=== PATIENT | male | born 1990 | race Caucasian/White ===

== ENCOUNTER 2019-04-08 16:40 | Emergency (ER) | payer SELFPAY ==
[2019-04-08] MEDS ORDERED: NORMAL SALINE 1000 ML 1,000 ML IV ONE (17:14)
--- NOTE | 2019-04-08 17:14 | ER Document Report ---
ED Medical Screen (RME) - General Chief Complaint: Flank Pain Stated Complaint: FLANK PAIN Time Seen by Provider: 04/08/19 17:09 TRAVEL OUTSIDE OF THE [place] IN LAST 30 DAYS: No - HPI Notes: 04/08/19 17:13 Patient is a 28-year-old male who presents complaining of right upper quadrant abdominal pain and right side pain. Patient states that he still has a cough and is not sure if this is related. He does feel hot and cold. He is urinating normally and having normal bowel movements. Pain does not radiate otherwise. No surgical history to his abdomen. Denies drug allergies. No chest pain or shortness of breath. No nausea/vomiting/diarrhea. I have treated and performed a rapid initial assessment of this patient. A comprehensive ED assessment and evaluation of the patient, analysis of test re sults and completion of medical decision making process will be conducted by additional ED providers. PHYSICAL EXAMINATION: GENERAL: Well-appearing, well-nourished and in no acute distress. A&Ox4. Answers questions appropriately. Abdomen: Limited exam in triage, but patient does have right upper quadrant tenderness. No CVA tenderness Lungs: Grossly CTAB - Related Data Allergies/Adverse Reactions: No Known Allergies Allergy (Verified 04/08/19 17:08) Past Medical History Pulmonary Medical History: Denies: Hx Asthma Neurological Medical History: Reports: Hx Migraine Endocrine Medical History: Denies: Hx Diabetes Mellitus Type 1 Musculoskeltal Medical History: Denies Hx Arthritis Psychiatric Medical History: Reports: Hx Anxiety Traumatic Medical History: Denies: Hx Fractures - Immunizations Hx Diphtheria, Pertussis, Tetanus Vaccination: No Physical Exam - Vital signs Vitals: Temp Pulse Resp BP Pulse Ox 97.6 F 105 H 20 150/87 H 100 04/08/19 16:42 04/08/19 16:42 04/08/19 16:42 04/08/19 16:42 04/08/19 16:42 Course - Vital Signs Vital signs: Temp Pulse Resp BP Pulse Ox 97.6 F 105 H 20 150/87 H 100 04/08/19 16:42 04/08/19 16:42 04/08/19 16:42 04/08/19 16:42 04/08/19 16:42
[2019-04-08] MEDS ORDERED: MORPHINE SULFATE 10 MG/ML INJ IV ONE ×2 (17:15→19:50)
[2019-04-08 17:43] LABS: ABSOLUTE LYMPHOCYTES (AUTO) 0.6 10^3/uL (0.5-4.7); ABSOLUTE MONOCYTES (AUTO) 0.4 10^3/uL (0.1-1.4); ABSOLUTE NEUT (AUTO) 7.7 10^3/uL (1.7-8.2); BASOPHILS % (AUTO) 0.2 % (0-2); HEMATOCRIT 45.4 % (37.9-51.0); HEMOGLOBIN 15.8 g/dL (13.5-17.0); LYMPHOCYTES % (AUTO) 6.7 % (13-45); MEAN CORPUSCULAR HEMOGLOBIN 30.9 pg (27.0-33.4); MEAN CORPUSCULAR HGB CONC 34.8 g/dL (32.0-36.0); MEAN CORPUSCULAR VOLUME 89 fl (80-97); MONOCYTES % (AUTO) 4.9 % (3-13); PLATELET COUNT 261 10^3/uL (150-450); RED BLOOD COUNT 5.11 10^6/uL (4.35-5.55); RED CELL DISTRIBUTION WIDTH 12.4 % (11.5-14.0); SEGMENTED NEUTROPHILS % (AUTO) 88.2 % (42-78); TOTAL CELLS COUNTED % (AUTO) 100 %; WHITE BLOOD COUNT 8.7 10^3/uL (4.0-10.5)
[2019-04-08 17:44] LABS: APPEARANCE,URINE CLEAR; BILIRUBIN,URINE NEGATIVE (NEGATIVE); COLOR,URINE YELLOW; GLUCOSE, URINE NEGATIVE (NEGATIVE); KETONES,URINE 80 mg/dL (NEGATIVE); LEUKOCYTE ESTERASE,URINE NEGATIVE (NEGATIVE); NITRITE,URINE NEGATIVE (NEGATIVE); PROTEIN,URINE 30 mg/dL (NEGATIVE); URINE SPECIFIC GRAVITY 1.026; UROBILINOGEN,URINE NEGATIVE mg/dL (<2.0)
[2019-04-08 18:03] LABS: ALBUMIN 5.1 g/dL (3.5-5.0); ALKALINE PHOSPHATASE 80 U/L (38-126); ANION GAP 14 (5-19); ASPARTATE AMINO TRANSFERASE 37 U/L (17-59); BILIRUBIN,DIRECT 0.2 mg/dL (0.0-0.4); BILIRUBIN,TOTAL 0.9 mg/dL (0.2-1.3); BLOOD UREA NITROGEN 13 mg/dL (7-20); CALCIUM 9.9 mg/dL (8.4-10.2); CARBON DIOXIDE 25 mmol/L (22-30); CHLORIDE 98 mmol/L (98-107); GLUCOSE 116 mg/dL (75-110); POTASSIUM 4.1 mmol/L (3.6-5.0); TOTAL PROTEIN 8.5 g/dL (6.3-8.2)
--- NOTE | 2019-04-08 18:04 | RADIOLOGY REPORT (SQ) ---
EXAM DESCRIPTION: CHEST 2 VIEWS COMPLETED DATE/TIME: 04/08/2019 5:47 pm REASON FOR STUDY: Cough, RUQ pain COMPARISON: None. EXAM PARAMETERS: NUMBER OF VIEWS: two views TECHNIQUE: Digital Frontal and Lateral radiographic views of the chest acquired. RADIATION DOSE: NA LIMITATIONS: none FINDINGS: LUNGS AND PLEURA: Elevated left hemidiaphragm. Mild subsegmental atelectasis in the left base. No acute infiltrate, effusion, or mass. MEDIASTINUM AND HILAR STRUCTURES: No masses or contour abnormalities. HEART AND VASCULAR STRUCTURES: Heart normal size. No evidence for failure. BONES: No acute findings. HARDWARE: None in the chest. OTHER: No other significant finding. IMPRESSION: NO ACUTE RADIOGRAPHIC FINDING IN THE CHEST. TECHNICAL DOCUMENTATION: JOB ID: [id number] [employer]- All Rights Reserved Reading location - IP/workstation name: [email or web address]
--- NOTE | 2019-04-08 18:43 | RADIOLOGY REPORT (SQ) ---
EXAM DESCRIPTION: U/S ABDOMEN LIMITED W/O DOP COMPLETED DATE/TIME: 04/08/2019 6:34 pm REASON FOR STUDY: RUQ pain COMPARISON: None. TECHNIQUE: Dynamic and static grayscale images acquired of the abdomen and recorded on PACS. Moraima richey selected color Doppler and spectral images recorded. LIMITATIONS: None. FINDINGS: PANCREAS: Poorly seen. LIVER: No masses. Echotexture normal. LIVER VASCULATURE: Normal directional flow of the main portal vein and hepatic veins. GALLBLADDER: No stones. There is some sludge. There is no wall thickening. There is no pericholecy stic fluid. ULTRASOUND-DETECTED JIMENES'S SIGN: Negative. INTRAHEPATIC DUCTS AND COMMON DUCT: CBD and intrahepatic ducts normal caliber. No filling defects. INFERIOR VENA CAVA: Normal flow. AORTA: No aneurysm. RIGHT KIDNEY: Normal size, 10.2 cm. Normal echogenicity. No solid or suspicious masses. No hydroneph rosis. No calcifications. PERITONEAL AND RIGHT PLEURAL SPACE: No ascites or effusions. OTHER: No other significant findings. IMPRESSION: Study is normal except for the presence of a small amount of sludge in the gallbladder. TECHNICAL DOCUMENTATION: JOB ID: [id number]- All Rights Reserved Reading location - IP/workstation name: [email or web address]
--- NOTE | 2019-04-08 20:58 | ER Document Report ---
ED General - General Chief Complaint: Flank Pain Stated Complaint: FLANK PAIN Time Seen by Provider: 04/08/19 17:09 Primary Care Provider: ROSALIO BLACKWELL MD [ACTIVE STAFF] - Follow up in 1 week (for surgery follow up) TRAVEL OUTSIDE OF THE [place] IN LAST 30 DAYS: No - HPI Notes: 28-year-old male to the emergency department with complaints of right upper quadrant pain that radiates into the right flank that began yesterday and has gotten worse. He admits to associated nausea but denies any vomiting. Denies any fevers, chills, chest pain, shortness of breath. He states that he is never had abdominal surgery. - Related Data Allergies/Adverse Reactions: No Known Allergies Allergy (Verified 04/08/19 17:08) Past Medical History - General Information source: Patient, Relative - Social History Smoking Status: Never Smoker Chew tobacco use (# tins/day): No Drug Abuse: None Lives with: Spouse/Significant other Family History: Reviewed & Not Pertinent Patient has suicidal ideation: No Patient has homicidal ideation: No Pulmonary Medical History: Denies: Hx Asthma Neurological Medical History: Reports: Hx Migraine Endocrine Medical History: Denies: Hx Diabetes Mellitus Type 1 Musculoskeletal Medical History: Denies Hx Arthritis Psychiatric Medical History: Reports: Hx Anxiety Traumatic Medical History: Denies: Hx Fractures - Immunizations Hx Diphtheria, Pertussis, Tetanus Vaccination: No Review of Systems - Review of Systems Constitutional: denies: Chills, Fever EENT: No symptoms reported Cardiovascular: denies: Chest pain, Palpitations, Heart racing, Dizziness, Lightheaded Respiratory: denies: Cough, Short of breath Gastrointestinal: Abdominal pain, Nausea. denies: Diarrhea, Vomiting Genitourinary: Flank pain. denies: Frequency, Hematuria, Incontinence Male Genitourinary: No symptoms reported Musculoskeletal: denies: Back pain, Gout, Joint pain Skin: No symptoms reported Hematologic/Lymphatic: No symptoms reported Neurological/Psychological: No symptoms reported -: Yes All other systems reviewed and negative Physical Exam - Vital signs Vitals: Temp Pulse Resp BP Pulse Ox 97.6 F 105 H 20 150/87 H 100 04/08/19 16:42 04/08/19 16:42 04/08/19 16:42 04/08/19 16:42 04/08/19 16:42 Interpretation: Normal - General General appearance: Alert In distress: Mild Notes: mild pain distress - HEENT Head: Normocephalic, Atraumatic Eyes: Normal Pupils: PERRL - Respiratory Respiratory status: No respiratory distress Chest status: Nontender Breath sounds: Normal Chest palpation: Normal - Cardiovascular Rhythm: Regular Heart sounds: Normal auscultation Murmur: No - Abdominal Inspection: Normal Distension: No distension Bowel sounds: Normal Tenderness: Tender - + TTP over over the RUQ, he has mild guarding with p alpation. no Rebound, negative McBurney's point. no CVAT Organomegaly: No organomegaly - Back Back: Normal, Nontender. No: CVA tenderness - Extremities General upper extremity: Normal inspection, Nontender, Normal color, Normal ROM, Normal temperature General lower extremity: Normal inspection, Nontender, Normal color, Normal ROM, Normal temperature, Normal weight bearing. 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 Patient is much improved after pain control with morphine. Repeat abdominal exam show only minimal right upper quadrant TTP -- significantly better from initial exam. Labs are reassuring and US does not show acute cholecystitis or evidence of bile duct obstruction. Will discharge home with pain meds and follow up with surgery. Encouraged to return if worsening pain, fevers, jaundice, intractable vomiting. Patient and spouse agree with the plan. Impression: RUQ abd pain, biliary colic, gallbladder sludge. Will follow treatment plan as outline above. Encouraged low fat diet. - Vital Signs Vital signs: Temp Pulse Resp BP Pulse Ox 98.3 F 89 16 135/92 H 100 04/08/19 21:02 04/08/19 21:02 04/08/19 21:02 04/08/19 21:02 04/08/19 21:02 - Laboratory Result Diagrams: 04/08/19 17:26 04/08/19 17:26 Laboratory results interpreted by me: 04/08/19 04/08/19 04/08/19 17:26 17:26 17:26 Lymph % (Auto) 6.7 L Seg Neutrophils % 88.2 H Sodium 136.8 L Glucose 116 H Total Protein 8.5 H Albumin 5.1 H Lipase 20.5 L Urine Protein 30 H Urine Ketones 80 H Urine Ascorbic Acid 40 H Discharge - Discharge Clinical Impression: Gallbladder sludge, Right upper quadrant abdominal pain, Biliary colic Condition: Stable Disposition: HOME, SELF-CARE Instructions: Abdominal Pain ([facility]), Gallbladder Disease ([facility]), Low-Fat Diet ([facility]) Additional Instructions: FOLLOW UP WITH SURGEON WITHOUT FAIL. RETURN IF ANY WORSENING PAIN WITH FEVER, INTRACTABLE VOMITING, YELLOWING OF SKIN, OR ANY OTHER CONCERNS. ADHERE TO A LOW FAT DIET. Prescriptions: Docusate Sodium [Colace] 100 mg PO DAILY #20 capsule Tramadol HCl [Ultram 50 mg Tablet] 50 mg PO Q6H PRN #10 tab PRN Reason: Ondansetron [Zofran Odt 4 mg Tablet] 1 - 2 tab PO Q4H PRN #15 tab.rapdis PRN Reason: For Nausea/Vomiting Forms: Return to Work Referrals: ROSALIO BLACKWELL MD [ACTIVE STAFF] - Follow up in 1 week (for surgery follow up)
[2019-04-08 21:03] VITALS: BP 135/92
== END 2019-04-08 21:06 | disposition home or self-care (01) ==
LOC: ER 16:40
DX: K80.50 Calculus of bile duct without cholangitis or cholecystitis without obstruction (principal); K82.8 Other specified diseases of gallbladder; R10.11 Right upper quadrant pain; R10.9 Unspecified abdominal pain; R10.811 Right upper quadrant abdominal tenderness; R11.0 Nausea
CPT/HCPCS: 96376; 99284; 96361; 96374; 36415; 83690; 85025; 80053; 81001; 71046; 76705; J2270; J7030